=== PATIENT | male | born 1960 | race Caucasian/White ===

== ENCOUNTER 2018-01-20 14:24 | Emergency (ER) | payer MEDICARE ==
[~2018-01-20] VITALS: Ht 190.5 cm; Wt 131.5 kg
[~2018-01-20 14:24] MED LIST: ASPIRIN325 MG PO; CARVEDILOL25 MG PO; LANTUS100 UNIT/1 SQ; LASIX20 MG PO; LYRICA75 MG PO; METFORMIN HCL750 MG PO; NOVOLOG100 UNITS/ SQ; ZESTRIL20 MG PO; ZOCOR20 MG PO
[2018-01-20] MEDS ORDERED: HYDROCODONE/APAP 10MG-325MG TAB PO ONE (14:45)
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
[2018-01-20 16:47] VITALS: BP 172/89
== END 2018-01-20 16:53 | disposition home or self-care (01) ==
LOC: ER 14:24
DX: S80.01XA Contusion of right knee, initial encounter (principal); S90.01XA Contusion of right ankle, initial encounter; S90.31XA Contusion of right foot, initial encounter; S80.11XA Contusion of right lower leg, initial encounter; S40.012A Contusion of left shoulder, initial encounter; V43.52XA Car driver injured in collision with other type car in traffic accident, initial encounter; Y93.89 Activity, other specified; Y92.410 Unspecified street and highway as the place of occurrence of the external cause; Z89.411 Acquired absence of right great toe; I11.0 Hypertensive heart disease with heart failure; I50.9 Heart failure, unspecified; E11.9 Type 2 diabetes mellitus without complications; R42 Dizziness and giddiness
CPT/HCPCS: 72050; 99283

== ENCOUNTER → 2020-10-28 | Outpatient (CLI) | payer OTHER ==
[~2020-10-28] MED LIST changes: +COVID-19 VACC, MRNA(MODERNA)/PF 100 MCG/0.5 ML VIAL IM ONE
== END | disposition home or self-care (01) ==
LOC: VACCPMC 09:45
DX: Z23 Encounter for immunization (principal); Z20.822 Contact with and (suspected) exposure to COVID-19
CPT/HCPCS: 91301

== ENCOUNTER → 2020-11-25 | Outpatient (CLI) | payer MEDICARE, OTHER | END | disposition home or self-care (01) | LOC: VACCPMC 13:00 | DX: Z23 Encounter for immunization (principal); Z20.822 Contact with and (suspected) exposure to COVID-19 | CPT/HCPCS: 91301 ==

== ENCOUNTER 2022-08-01 07:48 | Emergency (ER) | payer OTHER ==
[~2022-08-01] VITALS: Ht 190.5 cm; Wt 108.9 kg
[~2022-08-01 07:48] MED LIST changes: +CEFDINIR300 MG PO; -COVID-19 VACC, MRNA(MODERNA)/PF 100 MCG/0.5 ML VIAL IM ONE
[2022-08-01 08:31] LABS: CLARITY,URINE SL CLOUDY (CLEAR); COLOR,URINE YELLOW (YELLOW); KETONES,URINE NEGATIVE (NEGATIVE); LEUKOCYTE ESTERASE ,URINE TRACE (NEGATIVE); NITRITE,URINE NEGATIVE (NEGATIVE); PROTEIN,URINE DIPSTICK 1+ (NEGATIVE)
[2022-08-01 08:32] LABS: URINE UROBILINOGEN 0.2 mg/dL (0.2 - 1)
[2022-08-01 08:35] LABS: BACTERIA,URINE FEW /HPF; EPITHELIAL CELLS,URINE FEW /LPF; WBC,URINE (MAN) >50 /HPF (0-5)
[2022-08-01] MEDS ORDERED: LIDOCAINE JELLY 2% 10ML URO-JET TOP ONE (09:30)
[2022-08-01] MEDS ORDERED: ACETAMINOPHEN 325 MG TAB PO STA (10:14)
== END 2022-08-01 10:49 | disposition home or self-care (01) ==
LOC: ER 07:55
DX: R30.0 Dysuria (principal); R33.9 Retention of urine, unspecified; R10.31 Right lower quadrant pain; I10 Essential (primary) hypertension; E11.9 Type 2 diabetes mellitus without complications; I50.9 Heart failure, unspecified; E78.5 Hyperlipidemia, unspecified
CPT/HCPCS: 51700; 74176; 81001; 99284